=== PATIENT | female | born 1980 | race Caucasian/White ===

== ENCOUNTER 2023-05-15 19:02 | Observation (INO) | payer OTHER, SELFPAY ==
[2023-05-15] VITALS (10 sets, daily range): BP systolic 107–122; BP diastolic 64–80; PULSE 75–101; RESP 16; TEMP 36.9; O2SAT 96–100
--- NOTE | ~2023-05-15 | CT_ITS ---
EXAMINATION: CT abdomen pelvis w con INDICATION: Lower abdominal pain TECHNIQUE: Computed tomographic images of the abdomen and pelvis were obtained after the administrati on of 100 cc of Omnipaque 350 intravenous contrast. The dose-length product (DLP) was 422.17 mGy-cm. Automated exposure control and iterative reconstruction technique were employed. COMPARISON: None available FINDINGS: Minimal dependent atelectasis is present in the lung bases. The heart size is normal. There are changes of cholecystectomy. The liver, spleen, pancreas, and right adrenal gland are normal. The re is a 1.9 cm mass of the left adrenal gland. Cysts of the kidneys measure up to 2.8 cm on the right . There is a 3 mm nonobstructing stone of the right kidney. There is a punctate nonobstructing stone of the left kidney. No pathologically enlarged abdominal or pelvic lymph nodes are identified. No darren e intraperitoneal gas or evidence of bowel obstruction. The appendix is normal. A moderate volume of colonic stool is present. IMPRESSION: 1. No CT correlate for the patient's symptoms. 2. 1.9 cm left adrenal mass, probably benign in the absence of known malignancy. Consider follow-up a drenal CT in 12 months. Reviewed, dictated and finalized at location [facility]. IMPRESSION: 1. No CT correlate for the patient's symptoms. 2. 1.9 cm left adrenal mass, probably benign in the absence of known malignancy . Consider follow-up adrenal CT in 12 months.
--- NOTE | ~2023-05-15 | US_ITS ---
Pelvic ultrasound. Clinical History: Right lower quadrant pain Technique: Realtime transabdominal and transvaginal scanning of the pelvis was performed. Color flow Doppler and Doppler spectral analysis were performed. Findings: The uterus is anteverted. The endometrial stripe has a thickness of 9 mm. No focal mass is identified. The right ovary measures 3.1 x 2.3 x 2.7 cm. No significant right ovarian or adnexal mass is seen. The left ovary measures 3.4 x 2.3 x 2.8 cm. No significant left ovarian or adnexal mass is seen. Vascular flow present in both ovaries on Doppler spectral analysis. There is no evidence of free fluid in the cul de sac. Impression: Unremarkable pelvic ultrasound. Reviewed, dictated and finalized at [facility]. Impression: Unremarkable pelvic ultrasound.
[2023-05-15] MEDS: SODIUM CHLORIDE 0.9% IV 1,000 ML 999 ML IV CONT (20:30)
[2023-05-15 20:35] LABS: Appearance Urine Clear (Clear); Bilirubin Urine Negative (Negative); Blood Urine Negative (Negative); Color Urine Yellow (Yellow); Glucose Urine UA Negative (Negative); Ketones Urine Negative (Negative); Leukocyte Esterase Ur Negative LEU/UL (Negative); Nitrate Urine Negative (Negative); Protein Urine Negative (Negative); Specific Grav Ur 1.014 (1.001-1.035); Urobilinogen Urine 0.2 mg/dL (<2.0); pH Urine 6.5 (5.0-9.0)
[2023-05-15 20:35] LABS: Basophils Absolute Auto 0.1 K/mm3 (0.0-0.1); Basophils Percent Auto 0.5 % (0.2-1.2); Eosinophils Absolute Auto 0.1 K/mm3 (0-0.3); Eosinophils Percent Auto 0.5 % (0-4.4); Hemoglobin 13.6 g/dL (12.0-15.0); Immature Granulocyte Absolute 0.13 K/mm3 (0.00-0.031); Immature Granulocyte Percent A 0.5 % (0-0.5); Lymphocytes Absolute Auto 1.66 K/mm3 (0.9-3.2); Lymphocytes Percent Auto 6.5 % (18.3-44.2); Mean Corpuscular HGB Conc 32.4 g/dl (32-36); Mean Corpuscular Hemoglobin 30.2 pg (26-34); Mean Corpuscular Volume 93.3 fl (80-100); Mean Platelet Volume 10.1 fl (7.4-10.4); Monocytes Absolute Auto 1.9 K/mm3 (0.1-0.6); Monocytes Percent Auto 7.3 % (2.6-8.5); Neutrophils Absolute Auto 21.6 K/mm3 (1.3-6.7); Neutrophils Percent Auto 84.7 % (45.5-73.1); Platelet Count Result 368 k/mm3 (150-375); Red Cell Distribution Width 13.8 % (11.5-14.5); White Blood Count 25.5 K/mm3 (4.5-10.0)
[2023-05-15 20:36] LABS: Lactic Acid Reflex 1.4 mmol/L (0.7-2.0)
[2023-05-15 20:40] LABS: Alanine Aminotransferase 19 U/L (6-35); Albumin Level 4.5 g/dL (3.5-5.1); Alkaline Phosphatase 52 U/L (38-126); Anion Gap 7 mmol/L (8-16); Aspartate Amino Transferase 19 U/L (14-36); Bilirubin,Total 0.3 mg/dL (0.2-1.3); Blood Urea Nitrogen 12 mg/dL (7-17); Calcium 9.7 mg/dL (8.4-10.2); Carbon Dioxide 29 mmol/L (22-30); Chloride 101 mmol/L (98-107); Estimated CRCL calculation 71 ml/min; Estimated Glomerular Filt Rate > 60; Glucose 112 mg/dL (65-110); Lipase 76 U/L (23-300); Potassium 3.9 mmol/L (3.4-5.0); Sodium 137 mmol/L (137-145)
[2023-05-15 21:06] LABS: Add Urine Microscopic? NO
[2023-05-15] MEDS: PIPERACILLN/TAZ 3.375GM/NS50ML 3.375 GM/50 ML BAG IVPB (21:45)
[2023-05-15] MEDS: MORPHINE SULFATE (*CRX) 2 MG/ML INJ IV PUSH (22:22)
--- NOTE | 2023-05-15 22:59 | ED.ABDPAIN ---
HPI - Abdominal Pain General Chief Complaint: Abdominal Pain Stated Complaint: lower abdominal pain Time Seen by Provider: 05/15/23 20:12 Source: patient Mode of arrival: ambulatory Limitations: no limitations History of Present Illness HPI narrative: 42-year-old female presents today with right lower quadrant pain that started around 6:00 this evening. Patient had tried 2 Tylenol with some Zofran at home. No relief in pain. Patient also nauseated. Pain goes to the right side and radiates to the left. Had a bowel movement this morning that was normal for her. Patient denies any fevers, body aches, chills. She does endorse nausea. Patient has a history of having her gallbladder out and a uterine ablation but no other history of gynecological issues. Related Data Allergies Allergy/AdvReac Type Severity Reaction Status Date / Time butorphanol Allergy Mild Itching Verified 05/15/23 20:30 fentanyl Allergy Mild Itching/SEVERE Verified 05/15/23 20:30 VOMITING prochlorperazine AdvReac Jittery Verified 05/15/23 22:26 [From Compazine] Review of Systems Review of Systems: All systems reviewed & are unremarkable except as noted in HPI and below Exam Const: General: cooperative, healthy appearing, comfortable, no acute distress and well developed Orientation/consciousness: patient oriented x3 HENMT: Head: normal to inspection Eyes: General: appearance normal, both eyes and all related structures Resp: Effort & Inspection: normal respiratory effort and able to speak in complete sentences Auscultation: clear to auscultation bilaterally Cardio: Rate: regular rate Rhythm: regular rhythm Heart sounds: S1 normal heart sound present and S2 normal heart sound present GI: Inspection: normal to inspection GI Palp: Yes abdominal tenderness (Right lower quadrant and left lower quadrant. Positive McBurney sign), Yes Soft to palpation and Yes Rebound tenderness present : External Female Exam: normal external appearance Speculum Exam - Vagina: normal appearance of the vagina, normal palpation, normal vaginal discharge, no lesions, No vaginal bleeding and nontender Speculum Exam - Cervix: normal appearance of the cervix, normal palpation, Cervical os closed, nontender and Other cervical findings present (no friability) Bimanual exam- vagina & uterus: normal bimanual exam Skin: General skin exam: normal color Neuro: General: patient oriented x3 Course Course Emergency Course: Discussed lab results and CT of abdomen with patient. Patient still with right lower quadrant pain. White count 25,000 with no history of being on steroids recently. Patient denies any vaginal discharge. Discussed further imaging with ultrasound and to do a pelvic exam with patient she is in agreement. Pelvic exam completing and awaiting ultrasound results. Patient still with right lower quadrant tenderness. Abdomen soft. Positive still for rebound tenderness. No fevers or tachycardia noted at this time. 0300 patient still with right lower quadrant tenderness. Work-up negative at this point except white count is 25,000. Still with pain to right lower quadrant. Improved with some morphine. Consultations Consultation #1: Dr. Joya consulted. Discussed case. willing to consult on patient if admitted by hospitalist. hospitalist paged. Date: 05/16/23 Time: 03:00 Vital Signs Vital signs: Vital Signs Temperature 98.5 F 05/15/23 19:24 Pulse Rate 101 H 05/15/23 19:24 Respiratory Rate 16 05/15/23 19:24 Blood Pressure 116/64 05/15/23 19:24 Pulse Oximetry 100 05/15/23 19:24 Oxygen Delivery Room Air 05/15/23 19:24 Temperature 98.5 F 05/15/23 19:24 Pulse Rate 69 05/16/23 01:53 Respiratory Rate 16 05/16/23 01:53 Blood Pressure 106/56 L 05/16/23 01:53 Pulse Oximetry 97 05/16/23 01:53 Oxygen Delivery Room Air 05/15/23 19:24 MDM - Abdominal Pain MDM Narrative Medical decision making narrative: 42-year-
[2023-05-16] VITALS (10 sets, daily range): BP systolic 102–121; BP diastolic 56–77; PULSE 65–75; RESP 12–16; TEMP 36.4–36.5; O2SAT 95–99; BMI 23.6
[2023-05-16] MEDS: LACTATED RINGERS 1,000 ML 150 ML IV CONT (02:02)
[2023-05-16] MEDS: MORPHINE SULFATE (*CRX) 2 MG/ML INJ IV PUSH (02:30)
--- NOTE | 2023-05-16 06:08 | ADMGEN ---
This patient, Nona Pascual, was admitted to [address] [place] [address] Room 330-02. Patient/family oriented to hospital policies and general routines including ID bracelet, bed and alarms, visiting hours, pain management, procedures, bathroom and other care routines, personal items, smoking policy, room service/diet, and visiting hours. Information on how to activate the Rapid Response Team has been discussed. Patient/Family are encouraged to report perceived risks to care and to ask questions if they do not understand what they are told or what they should do.
[2023-05-16] MEDS: PIPERACILLN/TAZ 3.375GM/NS50ML 3.375 GM/50 ML BAG IVPB ×2 (06:11→12:39)
[2023-05-16] MEDS: LACTATED RINGERS 1,000 ML 100 ML IV CONT (09:07)
[2023-05-16] MEDS: PANTOPRAZOLE SODIUM IV 40 MG VIAL IV PUSH (09:07)
[2023-05-16 10:28] LABS: Basophils Absolute Auto 0.1 K/mm3 (0.0-0.1); Basophils Percent Auto 0.5 % (0.2-1.2); Eosinophils Absolute Auto 0.1 K/mm3 (0-0.3); Eosinophils Percent Auto 1.1 % (0-4.4); Hematocrit 36.8 % (37.0-47.0); Hemoglobin 12.2 g/dL (12.0-15.0); Immature Granulocyte Absolute 0.06 K/mm3 (0.00-0.031); Immature Granulocyte Percent A 0.5 % (0-0.5); Lymphocytes Absolute Auto 1.92 K/mm3 (0.9-3.2); Lymphocytes Percent Auto 16.1 % (18.3-44.2); Mean Corpuscular HGB Conc 33.2 g/dl (32-36); Mean Corpuscular Hemoglobin 30.3 pg (26-34); Mean Corpuscular Volume 91.3 fl (80-100); Mean Platelet Volume 10.1 fl (7.4-10.4); Monocytes Absolute Auto 0.8 K/mm3 (0.1-0.6); Monocytes Percent Auto 6.5 % (2.6-8.5); Neutrophils Percent Auto 75.3 % (45.5-73.1); Platelet Count Result 300 k/mm3 (150-375); Red Blood Count 4.03 M/mm3 (4.2-5.4); Red Cell Distribution Width 13.7 % (11.5-14.5); White Blood Count 11.9 K/mm3 (4.5-10.0)
--- NOTE | 2023-05-16 10:32 | PM.CNGS ---
Assessment and Plan Assessment and plan (1) Right lower quadrant abdominal pain: Code(s): R10.31 - Right lower quadrant pain Status: Acute Assessment and Plan: I have reviewed the CT and discussed the findings with the patient. Her history of symptoms does not appear typical for acute appendicitis. She abruptly began having pain in the right lower quadrant but did not have any milder vague symptoms leading up to this. Her CT shows a completely normal appearing appendix. I discussed with her that with appendicitis we would likely expect some CT abnormalities with the severity of her symptoms and leukocytosis. There is still a very small possibility that that this is very early appendicitis. She does have a prominent amount of stool throughout her colon and I discussed with patient that this very likely could be related to constipation, reaction to something she ate or gastroenteritis, or other potential GI issues. Will place patient on clear liquid diet and stimulate bowels with milk of magnesia and MiraLax. Her white blood count is already improved today. Could consider discharging later today if pain is improving and she is tolerating diet. Would recommend covering for GI source of infection for 7-10 days of antibiotics. Discussed with patient options of staying in the hospital in repeating CT tomorrow morning if symptoms are persisting. Also discussed monitoring for worsening symptoms and returning for repeat evaluation in the emergency department. (2) Leukocytosis: Qualifiers: Leukocytosis type: bandemia Qualified Code(s): D72.825 - Bandemia Code(s): D72.829 - Elevated white blood cell count, unspecified Status: Acute Plan Thank you very much for allowing us to aid in the care of this patient. History of Present Illness Consult details Consult date: 05/16/23 Reason for consult: abdominal pain (RLQ) Requesting physician: Candace Hall APRN Narrative: This is a 42-year-old woman who I am asked to see for right lower quadrant pain. She began having right lower quadrant pain upper up fully around 6:00 p.m. yesterday. She had eaten a salad at a restaurant for lunch but denies any other concerning foods that she could have eaten. Her pain started abruptly and was located in the right lower quadrant. Pain was radiating across her lower abdomen. She denies any recent changes in her bowel habits. She denies any fevers or chills. She has had a prior history of colitis a couple years ago but symptoms were not the same as this. She is passing flatus. She does feel more gassy than usual. In the emergency department she was noted to have a very high white blood count. CT of her abdomen and pelvis was performed and was normal. She also had a pelvic exam and pelvic ultrasound which were normal. She was then admitted for further treatment. She has been placed on Zosyn. Her pain currently is manageable but is still persisting in the right lower quadrant. Review of Systems Review of Systems: All systems reviewed & are unremarkable except as noted in HPI and below Eyes: Eyes: Denies change in vision ENT: Denies hearing loss, Denies neck pain and Denies sore throat Cardiovascular: Cardiovascular: Denies chest pain and Denies dyspnea Respiratory: Respiratory: Denies cough, Denies dyspnea and Denies wheezing Gastrointestinal: Gastrointestinal: Reports as per HPI Genitourinary: Genitourinary: Denies hematuria and Denies dysuria Musculoskeletal: Musculoskeletal: Denies arthralgias, Denies joint swelling and Denies neck pain Allergic/Immunologic: Allergic/Immunologic: Denies wheezing [facility] Past Medical History Medical History (Updated 05/16/23 @ 10:37 by Fran Jeffrey DO) History of colitis Surgical History Surgical History (Updated 05/16/23 @ 10:36 by Fran Jeffrey DO) Hx laparoscopic cholecystectomy Hx of tubal ligation Family History Family History (Updated
[2023-05-16] MEDS: ACETAMINOPHEN 325 MG TABLET 650 MG PO (10:34)
[2023-05-16] MEDS: MAGNESIUM HYDROXIDE SUSP 30 ML UDC PO (10:43)
[2023-05-16] MEDS: polyethylene glycoL 3350 17 GM POWD.PACK PO (10:43)
[2023-05-16 10:45] LABS: Alanine Aminotransferase 15 U/L (6-35); Albumin Level 3.5 g/dL (3.5-5.1); Alkaline Phosphatase 41 U/L (38-126); Anion Gap 3 mmol/L (8-16); Aspartate Amino Transferase 17 U/L (14-36); Bilirubin,Total 0.6 mg/dL (0.2-1.3); Blood Urea Nitrogen 8 mg/dL (7-17); Calcium 8.8 mg/dL (8.4-10.2); Carbon Dioxide 25 mmol/L (22-30); Chloride 105 mmol/L (98-107); Estimated CRCL calculation 71 ml/min; Estimated Glomerular Filt Rate > 60; Glucose 89 mg/dL (65-110); Potassium 3.6 mmol/L (3.4-5.0); Sodium 133 mmol/L (137-145)
--- NOTE | 2023-05-16 15:32 | PM.SD2 ---
Same Day Admit/Disch: HPI History of Present Illness Chief complaint: RLQ Pain Narrative: Nona Pascual is a 42 year old female With a past medical history of anxiety, depression, IBS and hypertension that presented to the ED on 05/15/2023 with chief complaint of abdominal pain. Patient had been work that evening when she developed severe right lower quadrant abdominal pain. Patient states that she had been fine earlier that day and actually went to lunch with her friend without any problems. When she got to work she developed severe pain in new she needs to be seen. She does have a history of GI problems and does follow a GI specialist. She has had a complete GI workup and is on medications for IBS. She does have a history of a cholecystectomy as well. CBC revealed a white count of 25.5. CMP and lipase normal. UA not concerning for UTI. Pelvic exam performed in the ED the did not reveal any purulence drainage in swabs were taken for chlamydia and gonorrhea. Vaginal ultrasound did not reveal any acute findings. CT abdomen pelvis revealed a 1.9 cm left adrenal mass probably benign in the absence of known malignancy. recommending follow-up adrenal CT in [address] also showed a 3 mm nonobstructing stone which may remain not have cause patient's symptoms. It seems unlikely but that is the only thing on the CT that would possibly correlate. Patient's was started on IV fluids and Zosyn and General surgery was consulted. Patient had repeat CBC and CMP. Patient's white count had decreased to 11.2. Patient's symptoms had wildly improved. She had some a residual tenderness to palpation but it was not severe. Patient said she overall felt under the weather but nothing that would keep her in the hospital. She is very adamant about being discharged. Spoke with General surgery and they believe that patient could also be discharged at this time. She tolerated her diet well and had bowel movement before discharge. Discussed with patient that I would recommend a follow-up with her GI specialist in the next couple weeks. Advised return if symptoms worsen. Answered all of patient's questions to the best my ability. Her labs and vital signs are stable and she is medically clear for discharge. [facility], [facility] Past Medical History Medical History Anxiety and depression History of colitis Hypertension Irritable bowel syndrome Surgical History Surgical History Hx laparoscopic cholecystectomy Hx of tubal ligation Family History Family History Mother Hypertension Social History Social History Smoking status: Never smoker Alcohol intake: current Drinks per week: 1 Substance use: current Substance use type: marijuana Last use: 05/15/23 Lack of Transportation: No Lack of Food: Never True Current Housing: I Have Housing Concerned About Future Housing: No Difficulty Paying Gas/Electric Bills: No Difficulty Paying for Meds: No Currently Unemployed: No Education: Associate Degree Difficulty w/ Childcare or Family Care: No Spiritual care concerns: No Same Day Admit/Disch: Med Pre-admit Medications Home Medications Medication Instructions Recorded Confirmed Type amitriptyline 10 mg tablet 10 mg PO HS 05/16/23 05/16/23 History amoxicillin 875 mg-potassium 1 tablet PO Q12H #12 tabs 05/16/23 Rx clavulanate 125 mg tablet bupropion HCl 100 mg tablet 100 mg PO DAILY 05/16/23 05/16/23 History dicyclomine 20 mg tablet 20 mg PO DAILY 05/16/23 05/16/23 History lisinopril 20 1 tablet PO DAILY 05/16/23 05/16/23 History mg-hydrochlorothiazide 25 mg tablet metronidazole 500 mg tablet 500 mg PO Q12H #12 tabs 05/16/23 Rx omeprazole 40 mg capsule,delayed 40 mg PO DAILY 05/16/23 05/16/23 History
== END 2023-05-16 16:30 | disposition home or self-care (01) ==
LOC: ANHED 05-16 03:44 → ANH3MEDSUR 05-16 04:19
PROVIDERS: Internal Medicine Critical Care Medicine; Admitting Provider Internal Medicine; Emergency Provider Nurse Practitioner Family; Visit Provider Family Medicine
DX: R10.31 Right lower quadrant pain (principal); D72.825 Bandemia; D35.02 Benign neoplasm of left adrenal gland; F41.9 Anxiety disorder, unspecified; F32.A Depression, unspecified; K58.9 Irritable bowel syndrome, unspecified; I10 Essential (primary) hypertension; Z90.49 Acquired absence of other specified parts of digestive tract; F12.90 Cannabis use, unspecified, uncomplicated; Z79.899 Other long term (current) drug therapy
CPT/HCPCS: 36415; 74177; 76830; 76856; 80053; 81003; 81025; 83605; 83690; 85025; 87070; 87491; 87591; 87808; 96361; 96365; 96366; 96375; 99285; A9270; C9113; G0378; G0379; J2270; J2543; J7030; J7120; Q9967